=== PATIENT | male | born 1945 | race Caucasian/White ===

== ENCOUNTER 2017-05-27 21:25 | Inpatient (IN) | payer OTHER ==
[~2017-05-27] VITALS: Ht 172.7 cm; Wt 71.4 kg
[2017-05-27 22:39] LABS: BASOPHIL COUNT 0.1 K/uL (0-0.1); EOSINOPHIL (%) 0.4 % (0-5); EOSINOPHIL COUNT 0.1 K/uL (0-0.3); HEMATOCRIT 43.4 % (38.0-50.0); IMMATURE GRANULOCYTE (%) 0.4 % (0.0-0.7); IMMATURE GRANULOCYTE COUNT 0.1 K/uL; INSTRUMENT ABS NEUTROPHIL CT 13.4 K/uL; LYMPHOCYTE COUNT 3.4 K/uL (1.0-2.8); MCH 30.5 PG (29.0-34.0); MCHC 35.7 G/DL (30.0-36.0); MCV 85.4 FL (86-99); MEAN PLAT.VOLUME 11.3 uM^3 (9.0-12.4); MONOCYTE (%) 7.1 % (3-12); MONOCYTE COUNT 1.3 K/uL (0-0.8); NEUTROPHIL (%) 73.1 % (45-76); NEUTROPHIL COUNT 13.4 K/uL (1.8-6.4); PLATELET COUNT 250 K/uL (156-360); RBC DIS.WIDTH-CV 12.9 % (11.8-14.6); RBC DIS.WIDTH-SD 39.9 % (39-53); RED BLOOD COUNT 5.08 M/uL (4.00-5.50); WHITE BLOOD COUNT 18.3 K/uL (4.1-10.2)
[2017-05-27 22:47] LABS: CHLORIDE 105 mEq/L (99-109); POTASSIUM 3.6 mEq/L (3.7-5.4); SODIUM 139 mEq/L (136-147)
[2017-05-27 22:50] LABS: GLUCOSE 115 mg/dL (70-99)
[2017-05-27 22:51] LABS: ANION GAP 12 MEQ/L (2-14); TOTAL BILIRUBIN 1.7 mg/dL (0.0-1.0)
[2017-05-27 22:52] LABS: SERUM ETHYL ALCOHOL < 10 mg/dL
[2017-05-27 22:53] LABS: GFR ESTIMATE (CALCULATED) > 59 mL/min/
[2017-05-27 22:54] LABS: ALKALINE PHOSPHATASE 106 IU/L (3-129)
[2017-05-27 22:55] LABS: UREA NITROGEN (BUN) 23 mg/dL (9-23)
[2017-05-27 22:57] LABS: SALICYLATE < 5.0 MG/DL (15-30)
[2017-05-27 22:59] LABS: TROP-I INTERPRETATION NEGATIVE; TROPONIN-I 0.02 ng/mL (0.0-0.30)
[2017-05-27] MEDS ORDERED: METFORMIN HCL500 M4 PO (23:43)
[2017-05-27] MEDS ORDERED: PRILOSEC20 MG PO (23:43)
[2017-05-27] MEDS ORDERED: ATORVASTATIN CA20 MG PO (23:43)
[2017-05-27] MEDS ORDERED: COL-RITE100 M1 PO (23:43)
[2017-05-27] MEDS ORDERED: CARDIZEM CD,CA180 MG PO (23:43)
[2017-05-27] MEDS ORDERED: ONCE DAILY1 EACH PO (23:44)
[2017-05-27] MEDS ORDERED: ZOLOFT50 MG PO (23:44)
[2017-05-27] MEDS ORDERED: ASPIR 8181 M1 PO (23:44)
[2017-05-27] MEDS ORDERED: TRAZODONE HCL50 MG PO (23:44)
[2017-05-27] MEDS ORDERED: ALPRAZOLAM0.25 M2 PO (23:45)
[2017-05-27 23:49] LABS: ADD MIUA? NO; BILIRUBIN NEGATIVE; BLOOD NEGATIVE; COLOR YELLOW ((YELLOW)); GLUCOSE (STRIP) NEGATIVE; KETONES 20; LEUKOCYTES NEGATIVE; NITRITE NEGATIVE; PROTEIN (STRIP) 30; SPECIFIC GRAVITY 1.031 (1.000-1.030); UCUL ADDED? NO; UROBILINOGEN 0.2 MG/DL (0.2-1.0)
[2017-05-28 01:01] VITALS: BP 142/83
[2017-05-28 01:27] LABS: POINT-OF-CARE METER ID UU14188576; POINT-OF-CARE USER ID ENVTLS63
[2017-05-28 07:57] VITALS: BP 155/85
[2017-05-28 11:00] LABS: POINT-OF-CARE METER ID UU14188576
[2017-05-28 16:03] VITALS: BP 179/80
[2017-05-29 07:45] VITALS: BP 120/63
[2017-05-29 12:59] LABS: HEMATOCRIT 44.5 % (38.0-50.0); MCH 30.2 PG (29.0-34.0); MCHC 35.1 G/DL (30.0-36.0); MCV 86.1 FL (86-99); MEAN PLAT.VOLUME 11.4 uM^3 (9.0-12.4); PLATELET COUNT 261 K/uL (156-360); RBC DIS.WIDTH-CV 13.2 % (11.8-14.6); RBC DIS.WIDTH-SD 41.1 % (39-53); RED BLOOD COUNT 5.17 M/uL (4.00-5.50); WHITE BLOOD COUNT 11.8 K/uL (4.1-10.2)
[2017-05-29 15:45] VITALS: BP 113/58
[2017-05-29 22:57] LABS: POINT-OF-CARE METER ID UU14188576; POINT-OF-CARE USER ID BHSMEW
[2017-05-30 08:11] VITALS: BP 130/60
[2017-05-30 15:28] VITALS: BP 125/70
[2017-05-30 17:59] LABS: POINT-OF-CARE METER ID UU14188576
[2017-05-31 00:46] LABS: POINT-OF-CARE METER ID UU14188576; POINT-OF-CARE USER ID BHSSMG
[2017-05-31 02:08] LABS: HEMATOCRIT 40.4 % (38.0-50.0); MCH 30.7 PG (29.0-34.0); MCHC 35.1 G/DL (30.0-36.0); MCV 87.3 FL (86-99); MEAN PLAT.VOLUME 11.8 uM^3 (9.0-12.4); PLATELET COUNT 193 K/uL (156-360); RBC DIS.WIDTH-CV 13.2 % (11.8-14.6); RBC DIS.WIDTH-SD 41.6 % (39-53); RED BLOOD COUNT 4.63 M/uL (4.00-5.50); WHITE BLOOD COUNT 12.5 K/uL (4.1-10.2)
[2017-05-31 02:18] LABS: CHLORIDE 107 mEq/L (99-109); POTASSIUM 3.8 mEq/L (3.7-5.4); SODIUM 141 mEq/L (136-147)
[2017-05-31 02:20] LABS: GLUCOSE 89 mg/dL (70-99)
[2017-05-31 02:22] LABS: ANION GAP 9 MEQ/L (2-14)
[2017-05-31 02:24] LABS: GFR ESTIMATE (CALCULATED) > 59 mL/min/
[2017-05-31 02:25] LABS: UREA NITROGEN (BUN) 24 mg/dL (9-23)
[2017-05-31 07:23] VITALS: BP 113/58
[2017-05-31 15:43] VITALS: BP 123/57
[2017-06-01 07:59] VITALS: BP 114/60
[2017-06-01 15:43] VITALS: BP 118/55
[2017-06-02 08:11] VITALS: BP 116/75
[2017-06-02 15:30] VITALS: BP 129/58
[2017-06-03 07:51] VITALS: BP 133/67
[2017-06-03 14:04] LABS: ADD MIUA? YES; BILIRUBIN NEGATIVE; BLOOD NEGATIVE; COLOR YELLOW ((YELLOW)); GLUCOSE (STRIP) NEGATIVE; KETONES NEGATIVE; LEUKOCYTES NEGATIVE; NITRITE NEGATIVE; PROTEIN (STRIP) NEGATIVE; SPECIFIC GRAVITY 1.026 (1.000-1.030); UROBILINOGEN 0.2 MG/DL (0.2-1.0)
[2017-06-03 14:23] LABS: BACTERIA NONE SEEN /HPF; BUDDING YEAST 2+; CALCIUM OXALATE CRYSTALS 3+ /HPF; EPITHELIAL CELLS RARE /HPF; MUCUS 2+ /LPF; RED BLOOD CELLS TNTC /HPF (0-5); WHITE BLOOD CELLS 0-5 /HPF (0-5)
[2017-06-03 16:21] VITALS: BP 125/59
[2017-06-04 09:03] VITALS: BP 116/56
[2017-06-04 16:47] VITALS: BP 125/56
[2017-06-05 07:52] VITALS: BP 126/57
[2017-06-05 15:31] VITALS: BP 112/56
[2017-06-06 07:35] VITALS: BP 133/78
[2017-06-06 15:35] VITALS: BP 121/57
[2017-06-07 07:45] VITALS: BP 135/64
[2017-06-07 15:38] VITALS: BP 130/61
[2017-06-08 07:41] VITALS: BP 135/60
[2017-06-08] MEDS ORDERED: TRAZODONE HCL50 MG PO (09:03)
[2017-06-08] MEDS ORDERED: BUPROPION HCL100 M1 PO (09:03)
[2017-06-08] MEDS ORDERED: MIRTAZAPINE30 MG PO (09:03)
[2017-06-08] MEDS ORDERED: ARIPIPRAZOLE5 MG PO (09:03)
== END 2017-06-08 13:21 | disposition home health service (06) | DRG 885 ==
LOC: EME 21:25 → EDOF 23:55 → 1WEST 23:55 → ENRESERV 05-28 00:19 → 1WEST 05-28 00:49
PROVIDERS: Emergency Medicine; Hospitalist; Psychiatry & Neurology Psychiatry
DX: F33.2 Major depressive disorder, recurrent severe without psychotic features (principal); R45.851 Suicidal ideations; F41.9 Anxiety disorder, unspecified; F60.9 Personality disorder, unspecified; F09 Unspecified mental disorder due to known physiological condition; D72.829 Elevated white blood cell count, unspecified; E11.9 Type 2 diabetes mellitus without complications; I48.91 Unspecified atrial fibrillation; G47.9 Sleep disorder, unspecified; K59.00 Constipation, unspecified; E78.5 Hyperlipidemia, unspecified; K21.9 Gastro-esophageal reflux disease without esophagitis; Z85.46 Personal history of malignant neoplasm of prostate; F17.200 Nicotine dependence, unspecified, uncomplicated; Z79.84 Long term (current) use of oral hypoglycemic drugs; Z79.82 Long term (current) use of aspirin
CPT/HCPCS: 70140; 70551; 71010; 80048; 80053; 81003; 82948; 83605; 84443; 84484; 85025; 85027; 87651 90; 90839; 97150 GO; 97166 GO; 97530 GP; 99281; 99285; G0480